=== PATIENT | male | born 1970 | race Caucasian/White ===

== ENCOUNTER 2021-07-26 14:18 | Emergency (ER) | payer SELFPAY ==
[~2021-07-26] VITALS: Ht 175.3 cm; Wt 90.7 kg
[2021-07-26] MEDS ORDERED: IV NORMAL SALINE 100 ML BAG IV ONE (15:15)
[2021-07-26 15:28] LABS: HEMATOCRIT 46.8 % (36.7-47.1); MEAN CORPUSCULAR HEMOGLOBIN 29.2 uug (23.8-33.4); MEAN CORPUSCULAR VOLUME 86.1 fL (73.0-96.2); PLATELET COUNT (AUTO) 240 K/uL (152-348)
[2021-07-26 15:30] LABS: CREATININE 1.1 mg/dL (0.6-1.3); POTASSIUM 3.6 mmol/L (3.5-5.1)
[2021-07-26 15:36] LABS: BILIRUBIN,TOTAL 0.3 mg/dL (0.2-1.0)
[2021-07-26 16:33] LABS: *AMPHETAMINE, URINE POSITIVE (NEGATIVE); *CANNABINOID, URINE NEGATIVE (NEGATIVE); *COCCAINE, URINE NEGATIVE (NEGATIVE); *OPIATE, URINE NEGATIVE (NEGATIVE); *PHENCYCLIDINE SCREEN,URINE NEGATIVE (NEGATIVE)
[2021-07-26 17:51] VITALS: BP 111/78
--- NOTE | 2021-07-26 17:51 | NUR ---
Patient discharged to home in stable condition. Written and verbal after care instructions given. Patient verbalizes understanding of instructions. Stressed follow up or return to ER for worsening s/s.
--- NOTE | 2021-07-26 17:51 | NUR ---
IV removed. Catheter intact and site benign. Pressure and 4x4 gauze applied to site. No bleeding noted.
== END 2021-07-26 17:52 | disposition home or self-care (01) ==
LOC: ER 14:18
DX: E86.0 Dehydration (principal); R94.31 Abnormal electrocardiogram [ECG] [EKG]; R55 Syncope and collapse; T43.625A Adverse effect of amphetamines, initial encounter; T73.0XXA Starvation, initial encounter; Y92.89 Other specified places as the place of occurrence of the external cause; I48.91 Unspecified atrial fibrillation; Z79.01 Long term (current) use of anticoagulants
CPT/HCPCS: 36415; 70030-TC; 85025; 93005; A4663; J7030

== ENCOUNTER 2022-07-17 14:32 | Emergency (ER) | payer SELFPAY ==
[~2022-07-17] VITALS: Ht 175.3 cm; Wt 81.6 kg
[2022-07-17] MEDS ORDERED: IV NORMAL SALINE 1000 ML BAG IV ONE ×2 (14:45→15:30)
[2022-07-17 15:17] LABS: HEMATOCRIT 46.8 % (36.7-47.1); MEAN CORPUSCULAR HEMOGLOBIN 29.4 uug (23.8-33.4); PLATELET COUNT (AUTO) 203 K/uL (152-348)
[2022-07-17 15:22] LABS: CARBON DIOXIDE 28 mmol/L (21-32); CHLORIDE 93 mmol/L (98-107); CREATININE 1.6 mg/dL (0.6-1.3); POTASSIUM 3.7 mmol/L (3.5-5.1); UREA NITROGEN, BLOOD 16 mg/dL (7-18)
[2022-07-17 15:25] LABS: BILIRUBIN,DIRECT 0.1 mg/dL (0.0-0.2)
[2022-07-17 15:27] LABS: GLUCOSE 682 mg/dL (74-106)
[2022-07-17] MEDS ORDERED: METF-440 PO (15:44)
[2022-07-17] MEDS ORDERED: LORAZEPAM 2 MG/1 ML VIAL IV ONE (15:45)
[2022-07-17] MEDS ORDERED: METFORMIN HCL 500 MG TABLET PO ONE (15:45)
[2022-07-17] MEDS ORDERED: INSULIN REGULAR, HUMAN 300 UNIT/3 ML VIAL SQ ONE (15:45)
[2022-07-17] MEDS ORDERED: INSULIN REGULAR, HUMAN 300 UNIT/3 ML VIAL ONE (16:19)
[2022-07-17] MEDS ORDERED: METFORMIN HCL 500 MG TABLET ONE (16:34)
--- NOTE | 2022-07-17 17:08 | NUR ---
Removed IV intact, site okay, bandaged. Accucheck = 530 Gave pt d/c instructions, pt verbalized understanding.
--- NOTE | 2022-07-17 17:10 | NUR ---
1st L NS took longer than expected so cancelled 2nd liter ordered.
== END 2022-07-17 17:15 | disposition home or self-care (01) ==
LOC: ER 14:32
DX: E11.65 Type 2 diabetes mellitus with hyperglycemia (principal); E86.0 Dehydration; R42 Dizziness and giddiness; I11.0 Hypertensive heart disease with heart failure; I50.9 Heart failure, unspecified; E78.00 Pure hypercholesterolemia, unspecified
CPT/HCPCS: 99285; 96360; 71045; 80076; 80048; 83880; 85025; 85379; 84484; 36415; 93005; 96372; J1815; J7040; A4663